=== PATIENT | female | born 1945 | race Caucasian/White ===

== ENCOUNTER 2018-07-13 10:51 | Outpatient (CLI) | payer OTHER ==
[~2018-07-13 10:51] MED LIST: CALTRATE 600600 MG PO; CYMBALTA60 MG PO; DOXAZOSIN MESYLA4 MG PO; EFFEXOR XR75 MG PO; GLIPIZIDE5 MG PO; HYZAAR 100-251 UDTAB PO; KETO10TA2 PO; LIPITOR20 MG PO; MULTIVITAMIN1 TAB PO; NEURONTIN600 MG PO; NORFLEX100 MG PO; NORVASC10 MG PO; OLANZAPINE10 MG PO; OMEGA-31000 MG PO; PREDNISONE2.5 MG PO; PREVACID30 MG/PACK PO; PRILOSEC20 MG PO; RELAFEN500 MG PO; SEROQUEL50 MG PO; SYNTHROID200 MCG PO; TAMOXIFEN CITRA20 MG PO; TOPROL XL50 MG PO; VITAMIN E100 UNI2 PO; WELLBUTRIN SR150 MG PO
== END 2018-07-13 10:54 | disposition home or self-care (01) ==
LOC: MAMO-SONO 10:51
DX: Z12.31 Encounter for screening mammogram for malignant neoplasm of breast (principal); Z87.898 Personal history of other specified conditions; N60.11 Diffuse cystic mastopathy of right breast; N60.12 Diffuse cystic mastopathy of left breast; N64.59 Other signs and symptoms in breast; N64.89 Other specified disorders of breast

== ENCOUNTER 2018-12-26 12:02 | Outpatient (CLI) | payer OTHER | END 2018-12-26 12:07 | disposition home or self-care (01) | LOC: MAMO-SONO 12:02 | DX: C50.411 Malignant neoplasm of upper-outer quadrant of right female breast (principal); Z17.0 Estrogen receptor positive status [ER+] ==